=== PATIENT | female | born 1950 | race Caucasian/White ===

== ENCOUNTER → 2019-05-29 | Outpatient (CLI) | payer MEDICARE ==
[~2019-05-29] MED LIST: AZEL0.05 OD; BIOTLIQ9 MT; CALC1CAP31 PO; CBD OIL; CLAR10CA3 PO; CLONI1TA PO; DOCU100C16 PO; DULO1CAP6 PO; FIOR1CAP PO; FULV250S IM; LEVO88TA3 PO; LIDO4CRE4 TOP; NORV5TAB PO
[2019-05-29 13:02] LABS: CREATININE FOR GFR 1.18 MG/DL (0.55-1.30); GLOMERULAR FILTRATION RATE 48.1 (>39); POTASSIUM SERUM 4.2 MEQ/L (3.5-5.1)
== END ==
LOC: M LAB 12:01
PROVIDERS: ATTEND Internal Medicine Hematology & Oncology
DX: C50.919 Malignant neoplasm of unspecified site of unspecified female breast (principal)

== ENCOUNTER → 2019-05-30 | Outpatient (CLI) | payer MEDICARE ==
[~2019-05-30] MED LIST changes: +PROHANCE 279.3MG/ML 5ML VIAL (A9576) As Ordered ONE
--- NOTE | 2019-05-30 15:45 | REPVR ---
EXAM: MR Head Without and With Contrast EXAM DATE/TIME: 05/30/2019 8:53 AM CLINICAL HISTORY: 69 years old, female; Condition or disease; Cancer; Metastatic or secondary malignancy of brain; Primary cancer: Breast; Additional info: Numbmess, headaches, visual loss, stage iv brreast CA TECHNIQUE: Imaging protocol: MR of the head without and with intravenous contrast. Contrast material: PROHANCE; Contrast volume: 8 ml; Contrast route: 22G BUTTERFLY; COMPARISON: No relevant prior studies available. FINDINGS: Brain: The diffusion weighted images demonstrate no evidence for acute infarct. The cerebellar tonsils are normal in position. There are several small foci of increased signal in the deep subcortical white matter bilaterally, suggestive of chronic microvascular ischemic disease. The major intracranial vascular flow voids appear grossly patent. No intracranial hemorrhage or extraaxial collection is identified. There is no significant intracranial mass effect, and no mass is identified. There is no abnormal parenchymal or meningeal enhancement. Ventricles: The ventricles and sulci are normal in configuration. Bones/joints: Unremarkable. Soft tissues: Normal. Sinuses: Normal as visualized. No acute sinusitis. Mastoid air cells: Normal as visualized. No mastoid effusion. Orbits: Unremarkable. IMPRESSION: 1. No evidence for acute infarct, hemorrhage or mass. 2. Mild chronic white matter disease. Electronically signed by: Benton Hale On 05/30/2019 15:44:38 PM
== END ==
LOC: M RAD 08:07
PROVIDERS: ATTEND Internal Medicine Hematology & Oncology
DX: C50.919 Malignant neoplasm of unspecified site of unspecified female breast (principal); R20.2 Paresthesia of skin; R51 Headache; H53.9 Unspecified visual disturbance
CPT/HCPCS: 70553; A9576